=== PATIENT | female | born 1970 | race Two or more races ===

== ENCOUNTER 2022-07-06 10:52 | Emergency (ER) | payer MEDICAID ==
[~2022-07-06] VITALS: Ht 167.6 cm; Wt 98.0 kg
[2022-07-06] MEDS ORDERED: TETANUS-DIPTH-ACEL PERTUSSIS 0.5ML SYR Tdap IM ONE (13:00)
[2022-07-06 13:03] VITALS: BP 139/70
== END 2022-07-06 13:06 | disposition home or self-care (01) ==
LOC: ER 10:52
DX: S61.215A Laceration without foreign body of left ring finger without damage to nail, initial encounter (principal); Z88.1 Allergy status to other antibiotic agents; W26.8XXA Contact with other sharp object(s), not elsewhere classified, initial encounter; Y93.89 Activity, other specified; Y92.89 Other specified places as the place of occurrence of the external cause; Y99.8 Other external cause status
CPT/HCPCS: 12001; 90471; 90715; 99283; J2001